=== PATIENT | female | born 1985 | race Caucasian/White ===

== ENCOUNTER → 2017-01-18 | Outpatient (REF) | payer OTHER | LOC: M SFHCPLAZ 11:44 | PROVIDERS: ATTEND Nurse Practitioner Family | DX: Z12.4 Encounter for screening for malignant neoplasm of cervix (principal) ==

== ENCOUNTER → 2017-08-24 | Outpatient (REF) | payer OTHER ==
[2017-08-24 12:20] LABS: ALBUMIN 3.5 GM/DL (3.2-5.2); ALKALINE PHOSPHATASE 53 U/L (45-117); ALT/SGPT 17 U/L (12-78); ANION GAP 8 MEQ/L (8-16); AST/SGOT 12 U/L (7-37); BILIRUBIN,TOTAL 0.5 MG/DL (0.2-1.0); BLOOD UREA NITROGEN 20 MG/DL (7-18); CARBON DIOXIDE LEVEL 27 MEQ/L (21-32); CHLORIDE LEVEL 100 MEQ/L (98-107); CHOLESTEROL LEVEL 191 MG/DL (<200); CREATININE FOR GFR 0.72 MG/DL (0.55-1.02); GLOMERULAR FILTRATION RATE > 60.0 (>60); GLUCOSE, FASTING 274 MG/DL (70-105); POTASSIUM SERUM 4.5 MEQ/L (3.5-5.1); SODIUM LEVEL 135 MEQ/L (136-145); TRIGLYCERIDES LEVEL 70 MG/DL (<150)
== END ==
LOC: M LABDRAW1 10:04
DX: E10.65 Type 1 diabetes mellitus with hyperglycemia (principal)

== ENCOUNTER → 2018-07-05 | Outpatient (REF) | payer OTHER, BC ==
[2018-07-05 12:50] LABS: ALBUMIN 3.3 GM/DL (3.2-5.2); ALBUMIN/GLOBULIN RATIO 1.18 (1.00-1.93); ALKALINE PHOSPHATASE 39 U/L (45-117); ALT/SGPT 14 U/L (12-78); ANION GAP 5 MEQ/L (8-16); AST/SGOT 12 U/L (7-37); BILIRUBIN,TOTAL 0.5 MG/DL (0.2-1.0); BLOOD UREA NITROGEN 11 MG/DL (7-18); CALCIUM LEVEL 9.1 MG/DL (8.5-10.1); CARBON DIOXIDE LEVEL 27 MEQ/L (21-32); CHLORIDE LEVEL 107 MEQ/L (98-107); CHOLESTEROL LEVEL 181 MG/DL (<200); CREATININE FOR GFR 0.54 MG/DL (0.55-1.30); GLOMERULAR FILTRATION RATE > 60.0 (>60); GLUCOSE, FASTING 96 MG/DL (70-100); HDL CHOLESTEROL 87 MG/DL (>40); LDL CHOLESTEROL 85 MG/DL (<100); NON-HDL-C 94 MG/DL; POTASSIUM SERUM 4.3 MEQ/L (3.5-5.1); SODIUM LEVEL 139 MEQ/L (136-145); TOTAL PROTEIN 6.1 GM/DL (6.4-8.2); TRIGLYCERIDES LEVEL 46 MG/DL (<150)
[2018-07-05 16:33] LABS: CREATININE, URINE 29.3 MG/DL; MALB URINE SIEMENS 6.1 MG/L
[2018-07-05 16:36] LABS: MAU/CREAT RATIO 20.7 MCG/MG (0.0-30.0)
== END ==
LOC: M LABDRAW1 12:15
DX: E78.00 Pure hypercholesterolemia, unspecified (principal); R80.9 Proteinuria, unspecified
CPT/HCPCS: 80053

== ENCOUNTER 2018-10-31 13:05 | Emergency (ER) | payer OTHER, BC ==
[~2018-10-31] VITALS: Ht 160 cm; Wt 52.2 kg
[2018-10-31] MEDS ORDERED: LISI2.5T5 PO (13:20)
[2018-10-31] MEDS ORDERED: FLON1SPR NARES (13:20)
[2018-10-31] MEDS ORDERED: NOVOINJ3 SC (13:20)
[2018-10-31] MEDS ORDERED: INSUDET SC (13:20)
[2018-10-31] MEDS ORDERED: ZYRT10CA PO (13:20)
[2018-10-31 14:31] LABS: BASO % 0.2 % (0.0-1.0); EOS % 0.3 % (0.0-3.0); HEMATOCRIT 47.3 % (36.0-47.0); HEMOGLOBIN 16.4 g/dl (12.0-15.5); LYMPH # 1.2 10^3/uL (1.5-4.5); LYMPH % 9.7 % (24.0-44.0); MEAN CORPUSCULAR HEMOGLOBIN 30.2 pg (27.0-33.0); MEAN CORPUSCULAR HGB CONC 34.7 g/dl (32.0-36.5); MEAN CORPUSCULAR VOLUME 87.1 fl (80.0-96.0); MONO # 0.9 10^3/uL (0.0-0.8); MONO % 7.2 % (0.0-5.0); NEUTROPHILS % 81.9 % (36.0-66.0); PLATELET COUNT, AUTOMATED 274 10^3/uL (150-450); RED BLOOD COUNT 5.43 10^6/uL (4.00-5.40); WHITE BLOOD COUNT 12.2 10^3/uL (4.0-10.0)
[2018-10-31 14:54] LABS: HEMOGLOBIN A1c 7.5 %
[2018-10-31 15:08] LABS: BLOOD UREA NITROGEN 20 MG/DL (7-18); CALCIUM LEVEL 8.3 MG/DL (8.5-10.1); CARBON DIOXIDE LEVEL 23 MEQ/L (21-32); CHLORIDE LEVEL 99 MEQ/L (98-107); CK-MB VALUE MASS < 1.0 NG/ML (<3.6); CPK CREATINE PHOSPHOKINASE 57 U/L (26-192); CREATININE FOR GFR 0.62 MG/DL (0.55-1.30); GLOMERULAR FILTRATION RATE > 60.0 (>60); GLUCOSE, FASTING 158 MG/DL (70-100); MB/CK RELATIVE INDEX 1.75 (< OR =4); POTASSIUM SERUM 5.6 MEQ/L (3.5-5.1); SODIUM LEVEL 132 MEQ/L (136-145); TROPONIN I < 0.02 NG/ML (< 0.10)
[2018-10-31 16:27] VITALS: BP 124/68
== END 2018-10-31 16:29 | disposition home or self-care (01) ==
LOC: M ED 13:05
DX: Z04.1 Encounter for examination and observation following transport accident (principal); E10.649 Type 1 diabetes mellitus with hypoglycemia without coma; V48.5XXA Car driver injured in noncollision transport accident in traffic accident, initial encounter; Y92.9 Unspecified place or not applicable; Y93.9 Activity, unspecified; Y99.9 Unspecified external cause status; Z79.01 Long term (current) use of anticoagulants; Z79.899 Other long term (current) drug therapy; Z88.2 Allergy status to sulfonamides; Z88.8 Allergy status to other drugs, medicaments and biological substances

== ENCOUNTER → 2019-03-20 | Outpatient (REF) | payer OTHER ==
[~2019-03-20] MED LIST: FLON1SPR NARES; INSUDET SC; LISI-1046 PO; NOVOINJ3 SC; ZYRT10CA PO
== END ==
LOC: M SFHCPLAZ 11:30
PROVIDERS: ATTEND Nurse Practitioner Family
DX: Z12.4 Encounter for screening for malignant neoplasm of cervix (principal)

== ENCOUNTER → 2019-04-03 | Outpatient (CLI) | payer OTHER ==
--- NOTE | 2019-04-04 02:06 | REP ---
Clinical: thoracic pain. Technique: AP, lateral, and swimmers views. Findings: Alignment and kyphosis is maintained. Vertebral bodies intact. No acute fracture / compression injury or subluxation. No degenerative changes. Paravertebral soft tissues are normal. Impression: Normal thoracic spine series. Electronically Signed by Krishna Menon MD 04/04/2019 01:58 A
--- NOTE | 2019-04-04 02:10 | REP ---
Clinical: Nontraumatic hip pain. Technique: Frontal view of the pelvis with neutral and frog lateral views of the right and left hip. Findings: Osseous structures and joint spaces are intact and normal. Hip joints appear symmetric and essentially age-appropriate. No acute fracture dislocation. No evidence for healed injury. No significant degenerative or congenital abnormalities are appreciated. Surrounding soft tissues are unremarkable. Impression: Normal age-appropriate pelvis and bilateral hip series. Electronically Signed by Krishna Menon MD 04/04/2019 02:02 A
--- NOTE | 2019-04-04 03:18 | REP ---
Clinical: Back pain. Technique: AP, lateral, bilateral oblique and coned-down views of the lumbosacral spine. Findings: Alignment and lordosis maintained. No acute fracture / compression injury or subluxation. No obvious spondylolysis or spondylolisthesis. Minimal endplate sclerosis and disc space narrowing at L4-5 and L5-S1 cannot be excluded. Impression: Very minimal endplate sclerosis and disc space narrowing at L5-S1 and L4-5. Electronically Signed by Krishna Menon MD 04/04/2019 03:09 A
--- NOTE | 2019-04-04 03:38 | REP ---
Clinical: Pain. Technique: AP, lateral, bilateral oblique, flexion/extension and open mouth views of the cervical spine. Findings: Mild multilevel degenerative changes are suggested including endplate heterogeneity and very subtle early spurring. Minimal disc space narrowing at C4-5 with mild 1.5 mm anterolisthesis on flexion noted. No acute fracture / compression injury. Oblique views demonstrate patent neural foramen. Open mouth view demonstrates normal C1-C2 articulation and odontoid process. Impression: Very subtle anterolisthesis at the C4-5 level with minimal disc space narrowing is suspected and should be correlated clinically. Electronically Signed by Krishna Menon MD 04/04/2019 03:29 A
== END ==
LOC: M WUC 14:35
PROVIDERS: ATTEND Nurse Practitioner Family
DX: M25.552 Pain in left hip (principal); M54.2 Cervicalgia; M51.36 Other intervertebral disc degeneration, lumbar region; M51.37 Other intervertebral disc degeneration, lumbosacral region

== ENCOUNTER → 2019-10-11 | Outpatient (REF) | payer OTHER ==
[2019-10-11 12:39] LABS: HEMATOCRIT 44.5 % (36.0-47.0); HEMOGLOBIN 13.8 g/dl (12.0-15.5); MEAN CORPUSCULAR HEMOGLOBIN 28.8 pg (27.0-33.0); MEAN CORPUSCULAR VOLUME 92.7 fl (80.0-96.0); PLATELET COUNT, AUTOMATED 222 10^3/uL (150-450); WHITE BLOOD COUNT 7.6 10^3/uL (4.0-10.0)
[2019-10-11 12:43] LABS: ALBUMIN 3.3 GM/DL (3.2-5.2); ALT/SGPT 26 U/L (12-78); BILIRUBIN,TOTAL 0.4 MG/DL (0.2-1.0); BLOOD UREA NITROGEN 10 MG/DL (7-18); CALCIUM LEVEL 8.4 MG/DL (8.5-10.1); CARBON DIOXIDE LEVEL 26 MEQ/L (21-32); CHLORIDE LEVEL 106 MEQ/L (98-107); CHOLESTEROL LEVEL 173 MG/DL (<200); CHOLESTEROL RISK RATIO 2.059 (<5); CREATININE FOR GFR 0.59 MG/DL (0.55-1.30); GLOMERULAR FILTRATION RATE > 60.0 (>60); GLUCOSE, FASTING 294 MG/DL (70-100); HDL CHOLESTEROL 84 MG/DL (>40); LDL CHOLESTEROL 79 MG/DL (<100); NON-HDL-C 89 MG/DL; POTASSIUM SERUM 4.5 MEQ/L (3.5-5.1); SODIUM LEVEL 138 MEQ/L (136-145); TOTAL PROTEIN 6.1 GM/DL (6.4-8.2); TRIGLYCERIDES LEVEL 51 MG/DL (<150)
[2019-10-11 13:18] LABS: CREATININE, URINE 42.8 MG/DL; MALB URINE SIEMENS 12.5 MG/L; MAU/CREAT RATIO 29.2 MCG/MG (0.0-30.0)
== END ==
LOC: M LABDRAW1 09:53
PROVIDERS: ATTEND Internal Medicine Endocrinology, Diabetes & Metabolism
DX: E10.65 Type 1 diabetes mellitus with hyperglycemia (principal)

== ENCOUNTER 2020-05-26 22:25 | Emergency (ER) | payer OTHER, SELFPAY ==
[~2020-05-26] VITALS: Ht 170.2 cm; Wt 54.1 kg
[~2020-05-26 22:25] MED LIST changes: -LISI-1046 PO; +LISI2.5T2 PO
[2020-05-26] MEDS ORDERED: HUMA100I3 SC (22:38)
[2020-05-26] MEDS ORDERED: ACET1TAB55 PO (22:38)
[2020-05-26] MEDS ORDERED: BASA100I SC (22:38)
[2020-05-26] MEDS ORDERED: TETRACAINE 0.5% OPHTH SOLN 4ML OD ONE (23:15)
[2020-05-26] MEDS ORDERED: FLUORESCEIN OPHTH 1 MG STRIP OD ONE (23:15)
[2020-05-26] MEDS ORDERED: ERYT5OIN25 OD (23:27)
[2020-05-26] MEDS ORDERED: ERYTHROMYCIN OPHTH OINT OD ONE (23:30)
[2020-05-26 23:51] VITALS: BP 124/79
== END 2020-05-26 23:53 | disposition home or self-care (01) ==
LOC: M ED 22:25
DX: S05.01XA Injury of conjunctiva and corneal abrasion without foreign body, right eye, initial encounter (principal); W26.8XXA Contact with other sharp object(s), not elsewhere classified, initial encounter; Y92.828 Other wilderness area as the place of occurrence of the external cause; Y93.01 Activity, walking, marching and hiking; E11.9 Type 2 diabetes mellitus without complications; Z88.2 Allergy status to sulfonamides; Z88.8 Allergy status to other drugs, medicaments and biological substances; Z79.4 Long term (current) use of insulin; Z79.899 Other long term (current) drug therapy

== ENCOUNTER → 2020-12-16 | Outpatient (REF) | payer OTHER ==
[~2020-12-16] MED LIST changes: +ACET1TAB55 PO; +BASA100I SC; +ERYT5OIN25 OD; +HUMA100I3 SC
[2020-12-16 19:35] LABS: CREATININE, URINE 33.2 MG/DL; MALB URINE SIEMENS 14.5 MG/L; MAU/CREAT RATIO 43.6 MCG/MG (0.0-30.0)
== END ==
LOC: M LAB REF 17:33
PROVIDERS: ATTEND Nurse Practitioner Family
DX: R80.9 Proteinuria, unspecified (principal)

== ENCOUNTER → 2021-04-28 | Outpatient (CLI) | payer OTHER ==
[~2021-04-28] MED LIST changes: -LISI2.5T2 PO; +LISI2.5T9 PO
[2021-04-28 17:39] LABS: ALBUMIN 3.2 GM/DL (3.2-5.2); ALT/SGPT 17 U/L (12-78); BILIRUBIN,TOTAL 0.2 MG/DL (0.2-1.0); BLOOD UREA NITROGEN 15 MG/DL (7-18); CALCIUM LEVEL 8.9 MG/DL (8.5-10.1); CARBON DIOXIDE LEVEL 25 MEQ/L (21-32); CHLORIDE LEVEL 104 MEQ/L (98-107); CREATININE FOR GFR 0.59 MG/DL (0.55-1.30); GLOMERULAR FILTRATION RATE > 60.0 (>60); GLUCOSE, FASTING 284 MG/DL (70-100); POTASSIUM SERUM 4.4 MEQ/L (3.5-5.1); SODIUM LEVEL 134 MEQ/L (136-145); TOTAL PROTEIN 6.2 GM/DL (6.4-8.2)
[2021-04-28 17:47] LABS: CREATININE, URINE 26.3 MG/DL; MALB URINE SIEMENS 8.4 MG/L; MAU/CREAT RATIO 31.9 MCG/MG (0.0-30.0)
[2021-04-28 17:59] LABS: HEPATITIS B SURFACE ANTIGEN NEGATIVE (NEGATIVE)
[2021-04-28 18:26] LABS: HEPATITIS B CORE ANTIBODY IGM NEGATIVE (NEGATIVE); HEPATITIS C VIRUS ABY INDEX < 0.0 INDEX (<0.8)
[2021-04-28 18:28] LABS: HIV 1&2 SCREEN CENTAUR NEGATIVE (NEGATIVE)
[2021-04-28 18:54] LABS: GC DNA AMPLIFICATION NEGATIVE (NEGATIVE)
[2021-04-28 21:25] LABS: HEMOGLOBIN A1c 8.9 %
== END ==
LOC: M PLALAB 14:53
PROVIDERS: ATTEND Nurse Practitioner Family
DX: Z11.3 Encounter for screening for infections with a predominantly sexual mode of transmission (principal); E10.9 Type 1 diabetes mellitus without complications

== ENCOUNTER 2021-12-29 13:44 | Emergency (ER) | payer OTHER ==
[~2021-12-29] VITALS: Ht 167.6 cm; Wt 53.3 kg
[2021-12-29] MEDS ORDERED: NS 1,000 ML IV ONE (14:55)
[2021-12-29 15:22] LABS: BASO % 0.7 % (0.0-1.0); EOS # 0.1 10^3/uL (0.0-0.5); EOS % 1.7 % (0.0-3.0); HEMATOCRIT 45.1 % (36.0-47.0); HEMOGLOBIN 14.2 g/dl (12.0-15.5); LYMPH # 1.8 10^3/uL (1.5-5.0); LYMPH % 29.6 % (24.0-44.0); MEAN CORPUSCULAR HEMOGLOBIN 24.9 pg (27.0-33.0); MEAN CORPUSCULAR HGB CONC 31.5 g/dl (32.0-36.5); MONO # 0.4 10^3/uL (0.0-0.8); MONO % 7.2 % (2.0-8.0); NEUTROPHILS # 3.6 10^3/uL (1.5-8.5); NEUTROPHILS % 60.5 % (36.0-66.0); PLATELET COUNT, AUTOMATED 350 10^3/uL (150-450); RED BLOOD COUNT 5.71 10^6/uL (4.00-5.40)
[2021-12-29 15:54] LABS: BLOOD UREA NITROGEN 15 MG/DL (7-18); CALCIUM LEVEL 10.2 MG/DL (8.5-10.1); CARBON DIOXIDE LEVEL 25 MEQ/L (21-32); CHLORIDE LEVEL 101 MEQ/L (98-107); CREATININE FOR GFR 0.69 MG/DL (0.55-1.30); FREE T4 1.04 NG/DL (0.76-1.46); GLOMERULAR FILTRATION RATE > 60.0 (>60); GLUCOSE, FASTING 216 MG/DL (70-100); POTASSIUM SERUM 4.2 MEQ/L (3.5-5.1); SODIUM LEVEL 133 MEQ/L (136-145)
[2021-12-29 17:43] VITALS: BP 139/86
== END 2021-12-29 17:55 | disposition home or self-care (01) ==
LOC: M ED 13:44
DX: H81.4 Vertigo of central origin (principal); H66.93 Otitis media, unspecified, bilateral; E11.9 Type 2 diabetes mellitus without complications; Z88.2 Allergy status to sulfonamides; Z88.9 Allergy status to unspecified drugs, medicaments and biological substances; Z79.4 Long term (current) use of insulin; Z79.899 Other long term (current) drug therapy

== ENCOUNTER → 2023-10-15 | Outpatient (REF) | payer BC ==
[2023-10-15 19:52] LABS: RSV AMPLIFICATION NEGATIVE (NEGATIVE)
== END ==
LOC: M LAB REF 17:56
PROVIDERS: ATTEND Physician Assistant
DX: J06.9 Acute upper respiratory infection, unspecified (principal)

== ENCOUNTER → 2024-01-12 | Outpatient (REF) | payer BC | LOC: M LAB REF 21:44 | PROVIDERS: ATTEND Physician Assistant | DX: J02.9 Acute pharyngitis, unspecified (principal) ==

== ENCOUNTER 2024-03-26 12:33 | Emergency (ER) | payer BC ==
[~2024-03-26] VITALS: Ht 170.2 cm; Wt 57.5 kg
[2024-03-26] MEDS ORDERED: NORE1TAB75 PO (13:02)
[2024-03-26] MEDS ORDERED: DYMI137S NARES (13:02)
[2024-03-26] MEDS: LIDOCAINE 1% MDV 20ML VIAL SC ONE (16:40)
[2024-03-26 17:37] VITALS: BP 158/89; TEMP 98.2; O2SAT 98
== END 2024-03-26 17:42 | disposition home or self-care (01) ==
LOC: M ED 12:33
DX: S61.213A Laceration without foreign body of left middle finger without damage to nail, initial encounter (principal); Y92.9 Unspecified place or not applicable; Y93.9 Activity, unspecified; Y99.0 Civilian activity done for income or pay; I10 Essential (primary) hypertension; E11.9 Type 2 diabetes mellitus without complications; J45.909 Unspecified asthma, uncomplicated; Z88.2 Allergy status to sulfonamides; Z88.8 Allergy status to other drugs, medicaments and biological substances; Z79.4 Long term (current) use of insulin; Z79.899 Other long term (current) drug therapy

== ENCOUNTER → 2024-08-03 | Outpatient (CLI) | payer BC ==
[~2024-08-03] MED LIST changes: +DYMI137S NARES; +NORE1TAB75 PO
== END ==
LOC: M WUC 11:45
PROVIDERS: ATTEND Nurse Practitioner Family
DX: M79.652 Pain in left thigh (principal)

== ENCOUNTER → 2024-10-03 | Outpatient (REF) | payer BC | LOC: M SFHCPLAZ 19:38 | DX: R30.0 Dysuria (principal); Z53.9 Procedure and treatment not carried out, unspecified reason ==

== ENCOUNTER → 2024-10-03 | Outpatient (REF) | payer BC ==
[2024-10-03 11:21] LABS: AMORPHOUS SEDIMENT SMALL (NEGATIVE); APPEARANCE, URINE HAZY (CLEAR); BACTERIA, URINE AUTO 2+ (NEGATIVE); BILIRUBIN, URINE AUTO NEGATIVE (NEGATIVE); BLOOD, URINE BLOOD 3+ (NEGATIVE); COLOR, URINE YELLOW (YELLOW); GLUCOSE, URINE (UA) AUTO NEGATIVE (NEGATIVE); KETONE, URINE AUTO 1+ mg/dL (NEGATIVE); LEUKOCYTE ESTERASE, URINE AUTO 1+ (NEGATIVE); MUCUS, URINE SMALL (NEGATIVE); NITRITE, URINE AUTO NEGATIVE (NEGATIVE); PROTEIN, URINE AUTO 2+ mg/dL (NEGATIVE); RBC, URINE AUTO 92 /HPF (0-3); SPECIFIC GRAVITY URINE AUTO 1.013 (1.002-1.035); SQUAMOUS EPITHELIAL CELL UR AU 3 /HPF (0-6); UROBILINOGEN, URINE AUTO 0.2 mg/dL (0.0-2.0); WBC, URINE AUTO 103 /HPF (0-3)
== END ==
LOC: M SFHCPLAZ 10:24
DX: R30.0 Dysuria (principal)

== ENCOUNTER → 2024-10-24 | Outpatient (CLI) | payer BC ==
[2024-10-24 15:13] LABS: HCG, SERUM QUANTITATIVE < 2.6 MIU/ML (<4.2)
[2024-10-24 15:17] LABS: FREE T4 1.26 NG/DL (0.89-1.76)
[2024-10-24 15:19] LABS: CHOLESTEROL LEVEL 171 MG/DL (<200); CHOLESTEROL RISK RATIO 2.55 (<5); TRIGLYCERIDES LEVEL 75 MG/DL (<150)
[2024-10-24 15:20] LABS: LUTEINIZING HORMONE 2.8 mIU/ML; PROLACTIN 6.94 NG/ML
[2024-10-24 15:21] LABS: FOLLICLE STIMULATING HORMONE 9.2 mIU/ML; THYROID STIMULATING HORMONE 3.052 uIU/ML (0.55-4.78)
== END ==
LOC: M PLALAB 09:18
PROVIDERS: ATTEND Nurse Practitioner Family
DX: N92.6 Irregular menstruation, unspecified (principal)

== ENCOUNTER → 2024-12-26 | Outpatient (CLI) | payer BC ==
[2024-12-26 11:58] LABS: CREATININE, URINE 67.6 MG/DL; MAU/CREAT RATIO 7.3 MCG/MG (0.0-30.0)
[2024-12-26 11:59] LABS: CHOLESTEROL RISK RATIO 2.29 (<5); HDL CHOLESTEROL 70.5 MG/DL (>40); LDL CHOLESTEROL 80.5 MG/DL (<100); NON-HDL-C 91.5 MG/DL
[2024-12-26 12:01] LABS: THYROID STIMULATING HORMONE 3.362 uIU/ML (0.55-4.78); TOTAL 25(OH) VITAMIN D 33.2 NG/ML (20.0-100.0)
== END ==
LOC: M PLALAB 08:12
PROVIDERS: ATTEND Internal Medicine Endocrinology, Diabetes & Metabolism
DX: E10.65 Type 1 diabetes mellitus with hyperglycemia (principal)

== ENCOUNTER → 2025-05-24 | Outpatient (CLI) | payer BC ==
[2025-05-24 12:32] LABS: BASO # 0.1 10^3/uL (0.0-0.2); BASO % 1.0 % (0.0-1.0); EOS # 0.2 10^3/uL (0.0-0.5); EOS % 4.6 % (0.0-3.0); LYMPH # 2.2 10^3/uL (1.5-5.0); LYMPH % 41.1 % (24.0-44.0); MONO # 0.5 10^3/uL (0.0-0.8); MONO % 9.3 % (2.0-8.0); NEUTROPHILS # 2.3 10^3/uL (1.5-8.5); NEUTROPHILS % 43.6 % (36.0-66.0); PLATELET COUNT, AUTOMATED 262 10^3/uL (150-450)
[2025-05-24 13:00] LABS: IRON (FE) 107.0 UG/DL (50-170); PERCENT SATURATION 39.1 % (13.2-45.0)
[2025-05-24 13:02] LABS: TOTAL T3 125.4 NG/DL (60.0-181.0)
[2025-05-24 13:03] LABS: FREE T4 1.1 NG/DL (0.89-1.76)
== END ==
LOC: M PLALAB 09:22
PROVIDERS: ATTEND Physician Assistant
DX: E10.65 Type 1 diabetes mellitus with hyperglycemia (principal); L29.9 Pruritus, unspecified; R68.89 Other general symptoms and signs; Z86.39 Personal history of other endocrine, nutritional and metabolic disease